=== PATIENT | male | born 1955 | race African-American/Black ===

== ENCOUNTER → 2018-07-08 | Outpatient (CLI) | payer OTHER ==
--- NOTE | 2018-07-08 16:36 | CONS ---
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 Clinically his greater trochanteric bursitis and IT band tendinitis is more s ymptomatic than his hip arthritis. He has relatively well-preserved range of motion. Given his social history he is not a good candidate for a total hip replacement this time. He needs to completely stop smoking as well as stop using nonprescribed narcotic pain medications. I also want to make sure he is in a stable housing situation as he is living in government housing at this wy. Plan: Physical therapy and meloxicam for greater trochanteric bursitis and IT band tendinitis and OA of the right hip. Like to see the patient back when he completely stop smoking and stop using nonprescribed narcotic pain medication. At that time I will reevaluate him to see if he is a better surgical candidate for right total hip replacement. Consultation Date/Type/Reason Admit Date/Time Date of Consultation: Jul 08, 2018 Date/Time of Note DATE: 07/08/18 TIME: 16:25 Hx of Present Illness This is a 63-year-old male who presents with a history of right hip pain. He currently lives and [facility] housing. He was incarcerated from [id number]. He is trying to get his life back on track. Patient states the pain is in the right groin and lateral right hip. The pain is primarily weight bearing and does not radiate. It is described as a dull ache. The pain is rated as a 10/10 with activity and 10/10 at rest. Walking tolerance is less than 1 block. Cane for external support. The patient does admit to a limp. Navigates stairs with use of the banister. Has difficulty with shoes and socks. No history of childhood or adolescent hip disease. No risk factors for avascular necrosis. There are no symptoms to suggest referred pain from the back with radicular symptoms. Treatment to date has included narcotics such as OxyContin and [place] which he got off the street, activity modification, support devices. The patient states that treatment to date has not provided adequate relief of symptoms, prompting consultation regarding operative and nonoperative treatment for right hip pain. Duration: Years Injury: No Walking tolerance: Less than 1 block Limp: Yes Support: Cane Stairs: Very difficult. Physical Therapy: No Injections: No NSAID's: No Prior surgery: No Back pain: Yes Knee pain: Yes Risk of AVN : No Patient denies fever, chills, shortness of breath, chest pain, nausea/vomiting, constipation, diarrhea, numbness, and tingling. Past Medical History Osteoarthritis Depression Substance abuse Past Surgical History Past Surgical Hx: no surgical history Family History Significant Family History: no pertinent family hx Social History Alcohol Use: none Smoking Status: Current every day smoker (1 pack/day) Drug Use: other (Nonprescribed narcotics) Exam/Review of Systems Exam Vitals Weight: 20 pounds Height: 6 feet 3 inches Temperature: 90.4 Heart Rate: 62 Blood Pressure: 124/67 Respiratory Rate: 14 Exam General: Awake, alert, in no acute distress, pleasant and cooperative Heart: regular rhythm Lungs: breathing comfortably, no tachypnea or dyspnea Musculoskeletal: Right lower extremity: Well developed thin male in no apparent distress. Gait demonstrates a large Trendelenburg with antalgic components and a short leg component. Standing, the pelvis is level and supine there is true leg length discrepancy, with the right leg 0.5 cm short. Exquisite tenderness over trochanteric bursa or IT band. ----- Range of motion: Flexion: 70 Extension: 0 Internal rotation: 10 External rotation: 45 Abduction: 45 Adduction: 10 ----- Sitting there is no pelvic obliquity. Pain at the extremes of motion of the affected hip. Skin was intact throughout both lower extremities. Sensation intact to light touch in a sural, saphenous, deep peroneal, superficial peroneal, medial and lateral plantar nerve distribution. Neurovascular exam showed 5/5 strength in the abductors, quads, EHL/tibialis anterior/gastroc. Normal and symmetrical pulses were palpated in both the dorsalis pedis and posterior tibial arteries. There is no sign of venous stasis. Imaging Imaging The patient received a full set of films and personally reviewed by myself today in clinic including an AP pelvis and an AP and lateral of the affected hip. The hip is reduced. There is complete loss of joint space. There is a large medial osteophyte formation and osteophytes of the femoral head. There is subchondral sclerosis. There are subchondral cysts. There is no significant deformity of the the proximal femur, femoral neck, or acetabulum. The pelvis is in continuity. Bone quality radiographically: LA Helm MD Jul 08, 2018 16:36
--- NOTE | 2018-07-11 10:55 | RADRPT ---
PROCEDURE: XR Right hip and pelvis. CLINICAL INDICATION: Right hip pain and pelvic pain. TECHNIQUE: 3 views. Frontal pelvis. Frontal and lateral right hip. COMPARISON: None. FINDINGS: There is no fracture or dislocation. The soft tissues are normal. There are severe degenerative changes of the right hip with joint space narrowing, osteophytes, subch ondral sclerosis, subchondral cysts, and deformity. There are moderate degenerative changes of the le ft hip with joint space narrowing and osteophytes. There is no lytic or blastic lesion. There is no radiopaque foreign body. IMPRESSION: 1. Severe degenerative changes of the right hip. 2. Moderate degenerative changes of the left hip. 3. Otherwise unremarkable study. RPTAT: QQ .Thiago Mcgill MD, MD Date Time Electronically viewed and signed by .Thiago Mcgill MD, on 07/11/2018 10:55 .R/
== END | disposition home or self-care (01) ==
LOC: HKI 13:05
PROVIDERS: ATTEND Orthopaedic Surgery Adult Reconstructive Orthopaedic Surgery
DX: M16.11 Unilateral primary osteoarthritis, right hip (principal); F32.9 Major depressive disorder, single episode, unspecified; F19.10 Other psychoactive substance abuse, uncomplicated
CPT/HCPCS: 73502; Z7500; G0463